=== PATIENT | female | born 1975 | race Caucasian/White ===

== ENCOUNTER 2017-03-22 18:46 | Emergency (ER) | payer BC ==
[2017-03-22 19:36] VITALS: BP 126/88
--- NOTE | 2017-04-06 14:35 | UC ---
Skin Complaint HPI - HPI Summary HPI Summary: exposed to poison beth on the 6th---has been getting worse and now patch on leg looks infected--- - History of Current Complaint Chief Complaint: UCSkin Time Seen by Provider: 03/22/17 19:20 Stated Complaint: SOFT TISSUE COMPLAINT Hx Obtained From: Patient Hx Last Menstrual Period: 03/20/17 ?: No Onset/Duration: Sudden Onset Skin Exposure Onset/Duration: Days Ago Timing: Constant Onset Severity: Mild Current Severity: Moderate Pain Intensity: 0 Pain Scale Used: 0-10 Numeric Location: Diffuse Character: Swelling, Pain, Redness, Raised, Painful Aggravating: Nothing Alleviating: OTC Meds Associated Signs & Symptoms: Positive: Rash, Tenderness, Red Streaks Related History: Possible Reaction to: Environmental Exposure - Allergy/Home Medications Allergies/Adverse Reactions: Allergies Allergy/AdvReac Type Severity Reaction Status Date / Time No Known Allergies Allergy Verified 03/22/17 18:54 Review of Systems Constitutional: Negative Skin: Rash Eyes: Negative ENT: Negative Respiratory: Negative Cardiovascular: Negative Gastrointestinal: Negative Genitourinary: Negative Motor: Negative Neurovascular: Negative Musculoskeletal: Negative Neurological: Negative Psychological: Negative All Other Systems Reviewed And Are Negative: Yes PMH/Surg Hx/FS Hx/Imm Hx Previously Healthy: Yes - Surgical History Surgical History: None - Family History Known Family History: Positive: None - Social History Occupation: Employed Full-time Lives: With Family Alcohol Use: Daily Substance Use Type: None Smoking Status (MU): Never Smoked Tobacco Physical Exam Triage Information Reviewed: Yes Appearance: Well-Appearing, No Pain Distress, Well-Nourished Vital Signs: Initial Vital Signs Temp 98.4 F 03/22/17 18:49 Pulse 71 03/22/17 18:49 Resp 18 03/22/17 18:49 BP 126/88 03/22/17 18:49 Pulse Ox 100 03/22/17 18:49 Vital Signs Reviewed: Yes Eye Exam: Normal Eyes: Positive: Conjunctiva Clear ENT Exam: Normal ENT: Positive: Normal ENT inspection, Hearing grossly normal. Negative: Nasal congestion, Nasal drainage, Trismus, Muffled/hoarse voice Dental Exam: Normal Neck exam: Normal Neck: Positive: Supple, Nontender Respiratory Exam: Normal Respiratory: Positive: Chest non-tender, No respiratory distress, No accessory muscle use Cardiovascular Exam: Normal Cardiovascular: Positive: Pulses Normal, Brisk Capillary Refill Musculoskeletal Exam: Normal Musculoskeletal: Positive: Strength Intact, ROM Intact Neurological Exam: Normal Neurological: Positive: Alert, Muscle Tone Normal Psychological Exam: Normal Psychological: Positive: Normal Response To Family, Age Appropriate Behavior Skin Exam: Normal Skin: Positive: rashes Course/Dx - Course Course Of Treatment: bactrim, prednisone, cool compress, follow with pcp as planned - Differential Diagnoses - Skin Complaint Differential Diagnoses: Cellulitis, Contact Dermatitis, Impetigo, Poison [place], Poison [place] - Diagnoses Provider Diagnoses: contact dermitis with secondary cellulitis Discharge - Discharge Plan Condition: Stable Disposition: HOME Prescriptions: Sulfamethox/Trimethoprim DS* [Bactrim DS 800/160 TAB*] 1 tab PO BID #20 tab predniSONE TAB* [Deltasone TAB*] 10 mg PO DAILY #45 tab Patient Education Materials: Contact Dermatitis (ED) Referrals: [facility] [place] [facility] [Outside] - 5 Days
== END 2017-03-22 19:20 | disposition home or self-care (01) ==
LOC: UCEAST 18:46
DX: L25.5 Unspecified contact dermatitis due to plants, except food (principal); L03.116 Cellulitis of left lower limb
CPT/HCPCS: 99212; G0463

== ENCOUNTER 2018-12-14 18:54 | Emergency (ER) | payer BC ==
[2018-12-14 19:29] VITALS: BP 139/94
[2018-12-14] MEDS ORDERED: Ibuprofen TAB* 600 MG PO ONE (20:19)
--- NOTE | 2018-12-14 20:50 | UC ---
Laceration HPI - HPI Summary HPI Summary: JUST PRIOR TO ARRIVAL PATIENT WAS ATTEMPTING TO GRAFT TWO SPECIES OF PLANTS TOGETHER WHEN SHE SLIPPED AND THE GRAFTING KNIFE CUT HER LEFT INDEX FINGER. UP TO-DATE TETANUS. - History Of Current Complaint Chief Complaint: UCLaceration Stated Complaint: LACERATION Time Seen by Provider: 12/14/18 20:39 Hx Obtained From: Patient Hx Last Menstrual Period: [id number] Laceration Location: Finger - LEFT INDEX Mechanism Of Injury: Sharp Trauma Onset/Duration: Sudden Onset, Lasting Hours, Still Present Severity: Moderate Pain Intensity: 5 Pain Scale Used: 0-10 Numeric Aggravating Factors: Movement Related History: Dominant Hand Right - Allergies/Home Medications Allergies/Adverse Reactions: Allergies Allergy/AdvReac Type Severity Reaction Status Date / Time No Known Allergies Allergy Verified 12/14/18 19:29 Home Medications: Home Medications Cholecalciferol (Vitamin D3) [Vitamin D3] 2,000 unit PO DAILY 12/14/18 [History Confirmed 12/14/18] PMH/Surg Hx/FS Hx/Imm Hx Previously Healthy: Yes - Surgical History Surgical History: None - Family History Known Family History: Positive: None, Non-Contributory - Social History Alcohol Use: Weekly Alcohol Amount: 2x Substance Use Type: None Smoking Status (MU): Never Smoked Tobacco Review of Systems All Other Systems Reviewed And Are Negative: Yes Constitutional: Positive: Negative Skin: Positive: Other - LACERATION Respiratory: Positive: Negative Cardiovascular: Positive: Negative Gastrointestinal: Positive: Negative Physical Exam Triage Information Reviewed: Yes Appearance: Well-Appearing, No Pain Distress, Well-Nourished Vital Signs: Initial Vital Signs Temp 98.9 F 12/14/18 19:24 Pulse 71 12/14/18 19:24 Resp 16 12/14/18 19:24 BP 139/94 12/14/18 19:24 Pulse Ox 100 12/14/18 19:24 Vital Signs Reviewed: Yes Eyes: Positive: Conjunctiva Clear ENT: Positive: Hearing grossly normal Neck: Positive: Supple Respiratory: Positive: No respiratory distress, No accessory muscle use Cardiovascular: Positive: Pulses Normal Abdomen Description: Positive: Soft Musculoskeletal: Positive: ROM Intact, No Edema Neurological: Positive: Alert Psychological: Positive: Age Appropriate Behavior Skin: Positive: Other - 1.8CM LINEAR LACERATION LEFT INDEX FINGER OVERLYING MIDDLE PHALANX Laceration Repair - Laceration Repair 1 Description: Linear Laceration Size After Repair: Length (cm) - 1.8CM, Width (mm) - 0MM, Depth (mm) - 3MM Modified For Repair: No Anesthesia Used: 1.0% Lido Irrigation With Pressure Irrigation Device: Yes Closure Material: Sutures - 4 simple interrupted Closure Method: Single Layer Suture Of: Skin Suture Type: Prolene - 5-0 Diagnostics - Radiology LEFT INDEX FINGER XRAYS Radiology Interpretation Completed By: ED Physician Summary of Radiographic Findings: UNREMARKABLE Laceration Course/Dx - Course/Dx Course Of Treatment: X-RAY TODAY UNREMARKABLE FOR ANY BONY INJURY ON MY INITIAL INTERPRETATION. OFFICIAL RADIOLOGY READ PENDING. LACERATION CLOSED WITH 4 SIMPLE INTERRUPTED SUTURES. TUBE GAUZE APPLIED BY RN. PATIENT WILL RETURN IN 10 DAYS FOR SUTURE. - Diagnosis Provider Diagnosis: Laceration of left index finger Discharge - Sign-Out/Discharge Documenting (check all that apply): Patient Departure All imaging exams completed and their final reports reviewed: No - Discharge Plan Condition: Stable Disposition: HOME Patient Education Materials: Laceration (ED) Referrals: Katy Fay MD [Primary Care Provider] - If Needed Additional Instructions: KEEP DRESSINGS IN PLACE AND DRY FOR THE FIRST 24 HRS. THEN YOU MAY REMOVE THE DRESSING AND GENTLY CLEANSE WITH SOAP AND WATER. PAT DRY AND RE-BANDAGE. APPLY THIN LAYER ANTIBIOTIC OINTMENT UNDER BANDAGE FOR FIRST 3-4 DAYS ONLY. AVOID NEOMYCIN CONTAINING PRODUCTS. CHANGE BANDAGE DAILY AND NEEDED IF IT BECOMES SOILED OR WET. SEEK FOLLOW-UP IF YOU DEVELOP SPREADING REDNESS OF THE SKIN, PURULENT DRAINAGE, FEVER, INCREASED PAIN OR ANY OTHER CONCERNING SYMPTOMS. RETURN TO HAVE YOUR 4 SUTURES REMOVED IN 10 DAYS - Billing Disposition and Condition Condition: STABLE Disposition: Home
[2018-12-14] MEDS ORDERED: Lidocaine 1%* 5 ML VIAL INJ ONE (21:13)
--- NOTE | 2018-12-15 08:46 | UC ---
- Progress Note Progress Note: Patient Name: BERNABE HEADLEY Medical Record#: [id number] Ordering Physician: Ruth Ann Drew MD Acct.#: [id number] : 1975 Age: 43 Sex: F Location: [facility] Exam Date: 12/14/182045 ADM Status: DEP ER Order Information: FINGER LEFT 2ND (INDEX) Accession Number: [id number] CPT: 80639 INDICATION: Left index finger laceration COMPARISON: None. TECHNIQUE: 3 views of the left index finger were obtained. FINDINGS: There is no radiographically apparent subcutaneous foreign body. The bones are normal alignment. Joint spaces appear maintained. No fracture is seen. IMPRESSION: NO RADIOGRAPHICALLY APPARENT SUBCUTANEOUS FOREIGN BODY IN THE VICINITY OF THE LEFT INDEX FINGER LACERATION. R1NF Preliminary Imaging Read R1NF <Electronically signed by Benjamín Yates MD in OV> 12/15/18820 Dictated By: Benjamín Yates MD Dictated Date/Time: 12/15/18820 Transcribed Date/Time: 12/15/18800 Copy to: CC:Ruth Ann Drew MD; Katy Fay MD Imaging - [facility] - [facility] [address] [address] ph ([phone]) ph ([phone]) ph ([phone]) This report is only to be considered final once signed by the Provider(s) as displayed in the "<Electronically Signed by >" field (s). Absence of a signature indicates the report is in a draft status and still needs to be finalized. In the event this document was created by someone other than the signing Provider, the individual initiating the document will be listed in the "Entered by:" or "Dictated by:" [place]. 1 of 1 Course/Dx - Diagnoses Provider Diagnoses: Laceration of left index finger Discharge - Sign-Out/Discharge Documenting (check all that apply): Post-Discharge Follow Up All imaging exams completed and their final reports reviewed: Yes - Discharge Plan Condition: Stable Disposition: HOME Patient Education Materials: Laceration (ED) Referrals: Katy Fay MD [Primary Care Provider] - If Needed Additional Instructions: KEEP DRESSINGS IN PLACE AND DRY FOR THE FIRST 24 HRS. THEN YOU MAY REMOVE THE DRESSING AND GENTLY CLEANSE WITH SOAP AND WATER. PAT DRY AND RE-BANDAGE. APPLY THIN LAYER ANTIBIOTIC OINTMENT UNDER BANDAGE FOR FIRST 3-4 DAYS ONLY. AVOID NEOMYCIN CONTAINING PRODUCTS. CHANGE BANDAGE DAILY AND NEEDED IF IT BECOMES SOILED OR WET. SEEK FOLLOW-UP IF YOU DEVELOP SPREADING REDNESS OF THE SKIN, PURULENT DRAINAGE, FEVER, INCREASED PAIN OR ANY OTHER CONCERNING SYMPTOMS. RETURN TO HAVE YOUR 4 SUTURES REMOVED IN 10 DAYS - Billing Disposition and Condition Condition: STABLE Disposition: Home
== END 2018-12-14 22:09 | disposition home or self-care (01) ==
LOC: UCEAST 18:54
DX: S61.211A Laceration without foreign body of left index finger without damage to nail, initial encounter (principal); W26.0XXA Contact with knife, initial encounter; Y92.9 Unspecified place or not applicable
CPT/HCPCS: 12001; 73140; 99212; A9270-GY; G0463